=== PATIENT | female | born 1985 | race Hispanic/Latino ===

== ENCOUNTER 2021-03-01 06:27 | Day surgery (SDC) | payer BC ==
[2021-02-27 12:42] LABS: BASOPHILS % (AUTO) 0.6 % (0.0-5.0); EOSINOPHILS % (AUTO) 0.8 % (0.0-8.0); HEMATOCRIT 33.3 % (36-48); LYMPHOCYTES % (AUTO) 32.9 % (21.0-51.0); MEAN CORPUSCULAR HEMOGLOBIN 26.7 pg (27.0-33.0); MEAN CORPUSCULAR HGB CONC 31.2 g/dL (32.0-36.0); MEAN CORPUSCULAR VOLUME 85.6 fL (79-99); MONOCYTES % (AUTO) 6.4 % (3.0-13.0); PLATELET COUNT (AUTO) 281 K/uL (130-400); RED BLOOD CELL COUNT(AUTO) 3.89 MIL/uL (4.00-5.50); RED CELL DISTRIBUTION WIDTH 13.5 % (11.0-15.5); WHITE BLOOD COUNT (AUTO) 6.6 K/uL (4.8-10.8)
[2021-02-28 09:27] VITALS: BP 118/60
[2021-03-01] VITALS (21 sets, daily range): BP systolic 97–108; BP diastolic 54–68
[~2021-03-01] VITALS: Ht 149.9 cm; Wt 62.5 kg
[2021-03-01] MEDS: CEFAZOLIN SODIUM 1 GM VIAL IVP SCH ×2 (06:00→08:10)
[~2021-03-01 06:27] MED LIST: L-NO1TBD3 PO
[2021-03-01] MEDS ORDERED: LACTATED RINGERS 1000ML 1,000 ML IV ONE (06:57)
[2021-03-01] MEDS ORDERED: BUPIVACAINE LIPOSOME/PF 266 MG/20 ML ML IJ SCH (07:00)
[2021-03-01] MEDS ORDERED: METRONIDAZOLE 500MG/100ML BAG 100 ML ONE (07:21)
[2021-03-01] MEDS ORDERED: PHENAZOPYRIDINE HCL 200 MG TABLET ONE (07:22)
[2021-03-01] MEDS ORDERED: CELE400C PO (07:44)
[2021-03-01] MEDS ORDERED: ACET-2743 PO (07:44)
[2021-03-01] MEDS ORDERED: MIDAZOLAM HCL 1 MG/ML 2ML VIAL ONE (07:48)
[2021-03-01] MEDS ORDERED: LIDOCAINE HCL MPF 1% 5ML VIAL ONE (07:48)
[2021-03-01] MEDS ORDERED: ROCURONIUM 10MG/1ML SYR 10 MG/ML ML ONE ×2 (07:49→09:17)
[2021-03-01] MEDS ORDERED: FENTANYL CITRATE PF 50 MCG/1 ML 2ML VIAL ONE (07:49)
[2021-03-01] MEDS ORDERED: PROPOFOL 10 MG/ML 20ML VIAL IV ONE (07:49)
[2021-03-01] MEDS ORDERED: EPHEDRINE SULFATE 50 MG/ML AMPULE ONE (08:40)
[2021-03-01] MEDS ORDERED: GLYCOPYRROLATE 1 MG/5 ML SYRINGE ONE (10:00)
[2021-03-01] MEDS ORDERED: NEOSTIGMINE 5MG/5ML SYR IV ONE (10:01)
[2021-03-01] MEDS ORDERED: MEPERIDINE-PF 25 MG/ML SYG ONE ×2 (10:51→11:00)
[2021-03-01] MEDS ORDERED: MORPHINE 10MG VIAL ONE (12:12)
== END 2021-03-01 14:05 | disposition home or self-care (01) ==
LOC: DAH 06:27
PROVIDERS: ATTEND Obstetrics & Gynecology
DX: N93.9 Abnormal uterine and vaginal bleeding, unspecified (principal); Z20.822 Contact with and (suspected) exposure to COVID-19; D25.1 Intramural leiomyoma of uterus; Z98.891 History of uterine scar from previous surgery; Z83.438 Family history of other disorder of lipoprotein metabolism and other lipidemia
CPT/HCPCS: 58573; S2900; 36415; 84703; 85025; 86850; 86900; 86901; 87426; A4344; C9290; J0690; J2175; J2250; J2270; J2704; J2710; J3010; J3490; J7030; J7120